=== PATIENT | male | born 1940 | race Caucasian/White ===

== ENCOUNTER → 2019-05-01 | Outpatient (CLI) | payer OTHER, BC ==
[~2019-05-01] VITALS: Ht 172.7 cm; Wt 83.9 kg
[~2019-05-01] MED LIST: CENTRUM SILVER1 EAC2 PO; FISH OIL 1,001000 M2 PO; OMEPRAZOLE20 M1 PO; VITAMIN D350 MC1 PO; XARELTO15 MG PO; ZOCOR20 MG PO
--- NOTE | 2019-05-01 15:08 | P ---
[facility] [place] [address] PROCEDURE REPORT Name: GT FRYE [facility] [id number] Admission: 05/01/19 Attend Phys: Corbin Choi MD Discharge: Date of : 44 Report #: [id number] THIS REPORT FOR: cc: Miles Mcgowan MD, Eric K. MD Thesing, John A. MD ~ CC: Miles Mcmahon DATE OF SERVICE: 05/01/2019 OUTPATIENT COLONOSCOPY REPORT BRIEF HISTORY: The patient is a 78-year-old male with a history of colon adenoma 5 years ago for high risk screening colonoscopy. PREOPERATIVE DIAGNOSIS: High risk screening colonoscopy. POSTOPERATIVE DIAGNOSIS: Hemorrhoidal tags. MEDICATIONS: Deep sedation with propofol per anesthesia. SPECIMEN: None. ESTIMATED BLOOD LOSS: None. PROCEDURE: Colonoscopy to cecum and terminal ileum. FINDINGS: Prior to propofol sedation, procedure of colonoscopy discussed with the patient as well as potential risks and its complications. He indicates he understands and desires to proceed. DESCRIPTION OF PROCEDURE: With the patient in left lateral decubitus position, digital examination was completed, which revealed no abnormalities. Subsequently, the Olympus video colonoscope was introduced into the rectum, advanced under direct vision to the cecum. Done with minimal difficulty. Cecum was identified by the ileocecal valve and the appendiceal orifice. I was able to visualize the distal segment of terminal ileum, which was inspected and noted to be unremarkable. At that point, the scope was slowly withdrawn and careful circumferential views were obtained. Upon slow withdrawal of the scope, the prep was good. The mucosa was within normal limits, normal vascular pattern, normal light reflex. No neoplastic lesions were seen. As we withdrew the scope, no mucosal abnormalities were seen. Scope was withdrawn in the rectum, no abnormalities were seen. However, upon retroflexion, small hemorrhoidal tags [facility] [address] [place] [address] PROCEDURE REPORT Name: GT FRYE [facility] #: [facility] [id number] Admission: 05/01/19 Attend Phys: Corbin Choi MD Discharge: Date of : 44 Report #: [id number] were seen. Scope was withdrawn. The patient tolerated the procedure well. CONDITION OF THE PATIENT UPON DISCHARGE: Following procedure, the patient drowsy and arousable, will be discharged home when fully ambulatory. INSTRUCTIONS TO THE PATIENT AND FAMILY AT THE TIME OF DISCHARGE: No neoplastic or polypoid lesions seen. This is a negative screening exam for colorectal cancer. Typical recommendation, return in 10 years. However, at 88, there may be minimal benefit from routine endoscopic evaluation of the colon. He will return to care of Dr. Miles Mcgowan, return to see me as needed. <ELECTRONICALLY SIGNED> By: Corbin Choi MD 05/01/19 [id number] Corbin Choi MD /nt
== END | disposition home or self-care (01) ==
LOC: GI 09:04
DX: Z12.11 Encounter for screening for malignant neoplasm of colon (principal); Z86.010 Personal history of colon polyps; K64.4 Residual hemorrhoidal skin tags; E78.6 Lipoprotein deficiency; K21.9 Gastro-esophageal reflux disease without esophagitis; Z98.890 Other specified postprocedural states; Z79.899 Other long term (current) drug therapy; Z86.718 Personal history of other venous thrombosis and embolism; Z86.711 Personal history of pulmonary embolism; Z98.41 Cataract extraction status, right eye; Z98.42 Cataract extraction status, left eye; Z90.49 Acquired absence of other specified parts of digestive tract; Z79.01 Long term (current) use of anticoagulants
CPT/HCPCS: 62110; 62900